=== PATIENT | male | born 1960 | race Caucasian/White ===

== ENCOUNTER 2019-09-03 22:35 | Emergency (ER) | payer OTHER ==
[~2019-09-03] VITALS: Ht 175.3 cm; Wt 83.9 kg
[2019-09-03 23:18] VITALS: BP 145/89
[2019-09-03] MEDS ORDERED: IBUPROFEN 800 MG TAB PO ONE (23:30)
[2019-09-03] MEDS ORDERED: ACETAMINOPHEN 500 MG TAB PO ONE (23:30)
== END 2019-09-04 00:17 | disposition home or self-care (01) ==
LOC: EDBD 22:35 → ER 22:40
DX: M54.2 Cervicalgia (principal); M25.512 Pain in left shoulder; M25.511 Pain in right shoulder; R51 Headache; E11.9 Type 2 diabetes mellitus without complications; V43.62XA Car passenger injured in collision with other type car in traffic accident, initial encounter; Y93.89 Activity, other specified; Y92.89 Other specified places as the place of occurrence of the external cause; Y99.8 Other external cause status
CPT/HCPCS: 72125; 72128; 73030